=== PATIENT | female | born 1985 ===

== ENCOUNTER 2018-01-10 10:18 | Emergency (ER) | payer OTHER ==
[~2018-01-10] VITALS: Ht 170.2 cm; Wt 65.8 kg
[2018-01-10] MEDS ORDERED: NORFLEX100MG PO (15:08)
[2018-01-10] MEDS ORDERED: IBUPROFEN800 MG PO (15:08)
== END 2018-01-10 15:20 | disposition home or self-care (01) ==
LOC: ER 10:18
DX: S30.0XXA Contusion of lower back and pelvis, initial encounter (principal); S19.89XA Other specified injuries of other specified part of neck, initial encounter; W18.39XA Other fall on same level, initial encounter; Y93.89 Activity, other specified; Y92.34 Swimming pool (public) as the place of occurrence of the external cause; Y99.8 Other external cause status

== ENCOUNTER 2021-01-04 21:34 | Emergency (ER) | payer OTHER ==
[~2021-01-04] VITALS: Ht 170.2 cm; Wt 65.8 kg
[~2021-01-04 21:34] MED LIST: IBUPROFEN800 MG PO; NORFLEX100MG PO
[2021-01-04] MEDS ORDERED: SINGULAIR10 MG PO (21:46)
[2021-01-04] MEDS ORDERED: ZYRTEC10 M3 PO (21:47)
[2021-01-04] MEDS ORDERED: PERCOCET 5-3251 EACH PO (23:36)
== END 2021-01-04 23:55 | disposition home or self-care (01) ==
LOC: ER 21:34
DX: S60.212A Contusion of left wrist, initial encounter (principal); S50.12XA Contusion of left forearm, initial encounter; X58.XXXA Exposure to other specified factors, initial encounter; Y92.028 Other place in mobile home as the place of occurrence of the external cause; Y99.9 Unspecified external cause status